=== PATIENT | female | born 1990 | race Asian ===

== ENCOUNTER 2018-12-21 10:38 | Emergency (ER) | payer BC ==
[~2018-12-21] VITALS: Ht 160 cm; Wt 65.8 kg
--- NOTE | 2018-12-21 10:50 | NUR ---
ED Nurse Note: patient walked in to ER from home c/o N/V/D and abdominal pain 05/03 since 0100 this morning. pt aao x4 and ambulatory. calm and cooperative. pt suspecting fully uncooked port that she ate for yesterday lunch might have caused it. skin clean and intact.
[2018-12-21 11:00] VITALS: BP 116/85
[2018-12-21] MEDS ORDERED: Morphine Sulfate 4mg/ml Inj (IV USE ONLY) IVP ONE ×3 (11:00→13:00)
[2018-12-21 11:20] LABS: HEMATOCRIT 40.1 % (37.0-47.0); HEMOGLOBIN 13.7 G/DL (12.0-16.0); MEAN CORPUSCULAR VOLUME 91 FL (80-99); PLATELET COUNT 250 K/UL (150-450); RED BLOOD COUNT 4.39 M/UL (4.20-5.40); RED CELL DISTRIBUTION WIDTH 11.6 % (11.6-14.8)
[2018-12-21 11:23] LABS: APPEARANCE,URINE CLEAR; BILIRUBIN, URINE NEGATIVE (NEGATIVE); COLOR,URINE PALE YELLOW; GLUCOSE, URINE (UA) NEGATIVE (NEGATIVE); KETONES,URINE NEGATIVE (NEGATIVE); LEUKOCYTE ESTERASE ,URINE NEGATIVE (NEGATIVE); NITRITE,URINE NEGATIVE (NEGATIVE); PH,URINE 7 (4.5-8.0); PROTEIN,URINE NEGATIVE (NEGATIVE); UROBILINOGEN,URINE NORMAL MG/DL (0.0-1.0)
[2018-12-21] MEDS ORDERED: NKM (11:28)
[2018-12-21 11:33] LABS: ANION GAP 12 mmol/L (5-15); BLOOD UREA NITROGEN 11 mg/dL (7-18); CALCIUM 8.8 MG/DL (8.5-10.1); CARBON DIOXIDE 26 MMOL/L (21-32); CHLORIDE 102 MMOL/L (98-107); CREATININE 0.6 MG/DL (0.55-1.30); POTASSIUM 3.3 MMOL/L (3.5-5.1); SODIUM 139 MMOL/L (136-145)
[2018-12-21 11:37] LABS: ALANINE AMINOTRANSFERASE 17 U/L (12-78); ALBUMIN 4.3 G/DL (3.4-5.0); ALBUMIN/GLOBULIN RATIO 1.2 (1.0-2.7); ALKALINE PHOSPHATASE 38 U/L (46-116); ASPARTATE AMINO TRANSFERASE 14 U/L (15-37); BILIRUBIN,TOTAL 0.6 MG/DL (0.2-1.0)
[2018-12-21] MEDS ORDERED: Isovue-300 100ml vial INJ PRN (11:45)
--- NOTE | 2018-12-21 12:19 | Emergency Room Report ---
History of Present Illness General Chief Complaint: Abdominal Pain Source: Patient Present Illness HPI Patient presents emergency department today complaining of severe epigastric pain. Patient states that she thinks she has some bad pork yesterday. The developed acute onset epigastric pain associate nausea vomiting and diarrhea since 1 AM. She has had persistent vomiting and diarrhea and is unable to tolerate any oral fluids. He denies any chest pain or shortness of breath. She is never had episodes of this before. She denies coffee-ground emesis or rectal bleeding. No other complaints are noted. Symptoms noted to be severe. No other modifying factors. No other associated signs and symptoms. No other complaints were noted. Allergies: Coded Allergies: No Known Allergies (Unverified , 12/21/18) Patient History Past Medical History: none Past Surgical History: appy Pertinent Family History: none Social History: Denies: smoking, alcohol use, drug use Last Menstrual Period: NOW Now: No Reviewed Nursing Documentation: PMH: Agreed; PSxH: Agreed Nursing Documentation-PMH Past Medical History: No Stated History Review of Systems All Other Systems: negative except mentioned in HPI Physical Exam Vital Signs Date Time Temp Pulse Resp B/P (MAP) Pulse Ox O2 Delivery O2 Flow Rate FiO2 12/21/18 10:45 98.6 90 20 114/81 (92) 98 Room Air Sp02 EP Interpretation: reviewed, normal General Appearance: alert, moderate distress Head: atraumatic Eyes: bilateral eye normal inspection ENT: normal ENT inspection, hearing grossly normal, normal voice Neck: normal inspection, full range of motion, supple, no bony tend Respiratory: normal inspection, lungs clear, normal breath sounds, no respiratory distress, no retraction, no wheezing Cardiovascular #1: regular rate, rhythm, no edema Gastrointestinal: normal inspection, normal bowel sounds, soft, no guarding, no hernia, tenderness - Epigastric Genitourinary: no CVA tenderness Musculoskeletal: normal inspection, back normal, normal range of motion Neurologic: normal inspection, alert, responsive, speech normal Psychiatric: normal inspection, judgement/insight normal, anxious Skin: normal inspection, normal color, no rash Medical Decision Making Diagnostic Impression: Primary Impression: Abdominal pain Additional Impressions: Dehydration Leukocytosis Vomiting ER Course Patient presents to the emergency department today complaining of abdominal pain. Differential considerations include acute pancreatitis, cholecystitis, gastritis, hepatitis, appendicitis just to name a few. Given the severity of the patient's presentation I felt this is a highly complex patient. This patient required extensive workup. Patient's laboratory work-up was positive for elevated white blood cell count. Because of the CT scan of the abdomen pelvis was performed. It was noted to be negative. Patient was given multiple boluses of fluids and pain medications felt better. Patient was offered admission but declined. Because of patient's elevated white blood cell, I advised her to have a CBC performed in 24 to 48 hours for recheck patient was given copies of all her labs and x-rays and CAT scans. Patient is advised to follow up with primary doctor in 2-3 days and return the emergency room for any worsening symptoms and as needed. Labs Test 12/21/18 11:02 12/21/18 11:14 12/21/18 13:25 White Blood Count 21.0 K/UL (4.8-10.8) 19.9 K/UL (4.8-10.8) Red Blood Count 4.39 M/UL (4.20-5.40) 4.25 M/UL (4.20-5.40) Hemoglobin 13.7 G/DL (12.0-16.0) 13.2 G/DL (12.0-16.0) Hematocrit 40.1 % (37.0-47.0) 39.4 % (37.0-47.0) Mean Corpuscular Volume 91 FL (80-99) 93 FL (80-99) Mean Corpuscular Hemoglobin 31.2 PG (27.0-31.0) 31.0 PG (27.0-31.0) Mean Corpuscular Hemoglobin Concent 34.1 G/DL (32.0-36.0) 33.4 G/DL (32.0-36.0) Red Cell Distribution Width 11.6 % (11.6-14.8) 11.9 % (11.6-14.8) Platelet Count 250 K/UL (150-450) 212 K/UL (150-450) Mean Platelet Volume 6.6 FL (6.5-10.1) 6.6 FL (6.5-10.1) Neutrophils (%) (Auto) % (45.0-75.0) % (45.0-75.0) Lymphocytes (%) (Auto) % (20.0-45.0) % (20.0-45.0) Monocytes (%) (Auto) % (1.0-10.0) % (1.0-10.0) Eosinophils (%) (Auto) % (0.0-3.0) % (0.0-3.0) Basophils (%) (Auto) % (0.0-2.0) % (0.0-2.0) Differential Total Cells Counted 100 Neutrophils % (Manual) 75 % (45-75) Lymphocytes % (Manual) 2 % (20-45) Monocytes % (Manual) 4 % (1-10) Eosinophils % (Manual) 1 % (0-3) Basophils % (Manual) 0 % (0-2) Band Neutrophils 18 % (0-8) Platelet Estimate Adequate Platelet Morphology Normal Red Blood Cell Morphology Normal Sodium Level 139 MMOL/L (136-145) Potassium Level 3.3 MMOL/L (3.5-5.1) Chloride Level 102 MMOL/L (98-107) Carbon Dioxide Level 26 MMOL/L (21-32) Anion Gap 12 mmol/L (5-15) Blood Urea Nitrogen 11 mg/dL (7-18) Creatinine 0.6 MG/DL (0.55-1.30) Estimat Glomerular Filtration Rate > 60 mL/min (>60) Glucose Level 89 MG/DL (74-106) Calcium Level 8.8 MG/DL (8.5-10.1) Total Bilirubin 0.6 MG/DL (0.2-1.0) Aspartate Amino Transf (AST/SGOT) 14 U/L (15-37) Alanine Aminotransferase (ALT/SGPT) 17 U/L (12-78) Alkaline Phosphatase 38 U/L (46-116) Total Protein 8.0 G/DL (6.4-8.2) Albumin 4.3 G/DL (3.4-5.0) Globulin 3.7 g/dL Albumin/Globulin Ratio 1.2 (1.0-2.7) Lipase 99 U/L (73-393) Urine Color Pale yellow Urine Appearance Clear Urine pH 7 (4.5-8.0) Urine Specific [place] 1.010 (1.005-1.035) Urine Protein Negative (NEGATIVE) Urine Glucose (UA) Negative (NEGATIVE) Urine Ketones Negative (NEGATIVE) Urine Blood 4+ (NEGATIVE) Urine Nitrite Negative (NEGATIVE) Urine Bilirubin Negative (NEGATIVE) Urine Urobilinogen Normal MG/DL (0.0-1.0) Urine Leukocyte Esterase Negative (NEGATIVE) Urine RBC 5-10 /HPF (0 - 2) Urine WBC 0 /HPF (0 - 2) Urine Squamous Epithelial Cells None /LPF (NONE/OCC) Urine Bacteria None /HPF (NONE) Urine HCG, Qualitative Negative (NEGATIVE) Chest X-Ray Diagnostic Results Chest X-Ray Diagnostic Results : Chest X-Ray Ordered: Yes # of Views/Limited/Complete: 1 View Indication: Chest Pain EP Interpretation: No Interpretation: no consolidation, no effusion, no pneumothorax Impression: No acute disease CT/MRI/US Diagnostic Results CT/MRI/US Diagnostic Results : Imaging Test Ordered: CT abdomen pelvis: Right-sided pulmonary nodule changes consistent enteriti Last Vital Signs Date Time Temp Pulse Resp B/P (MAP) Pulse Ox O2 Delivery O2 Flow Rate FiO2 12/21/18 11:36 98.6 12/21/18 11:00 87 20 116/85 100 Room Air Status: improved Disposition: HOME, SELF-CARE Condition: Stable Scripts Hydrocodone Bit/Acetaminophen 5-325* (NORCO 5-325*) 1 Each Tablet 1 TAB ORAL Q6H PRN for For Pain, #10 TAB 0 Refills Prov: Rafael Levi MD 12/21/18 Ondansetron Odt* (ZOFRAN ODT*) 4 Mg Tab.rapdis 4 MG BC EVERY 6 HOURS PRN for Nausea & Vomiting, #10 TAB 0 Refills Prov: Rafael Levi MD 12/21/18 Referrals: NOT CHOSEN [facility]/,REFERRING (PCP) Rafael Levi MD December 21, 2018 12:19
--- NOTE | 2018-12-21 12:30 | Diagnostic Imaging Report ---
Indication: Shortness of breath Technique: One view of the chest Comparison: none Findings: Lungs and pleural spaces are clear. Heart size is normal Impression: No acute process
--- NOTE | 2018-12-21 12:30 | Diagnostic Imaging Report ---
Clinical Indication: Abdominal pain, nausea, vomiting, diarrhea Technique: No oral contrast utilized, per emergency room physician request IV administration nonionic contrast. Venous phase spiral acquisition obtained through the abdomen and pelvis. Multiplanar reconstructions were generated. Total dose length product 705.72 mGycm. CTDIvol(s) 14.12 mGy. Dose reduction achieved using automated exposure control Comparison: Findings: Lack of enteric contrast limits assessment of the GI tract. Mild amount of liquid stool is seen in the proximal colon. What may be a short but otherwise normal appendix is equivocally demonstrated. No findings to suggest acute appendicitis. There are prominent mesenteric root and right lower quadrant lymph nodes noted. Small bowel loops in the pelvis and right upper quadrant are slightly prominent, fluid-filled, equivocally slightly thick walled. No evidence of diverticulosis or diverticulitis. The distal esophagus, stomach, duodenum are unremarkable. The liver, gallbladder, bile ducts, pancreas, spleen, adrenals, kidneys are all unremarkable. No pelvic mass or adenopathy. Uterus and adnexal structures are unremarkable. There appears to be a tampon in the vagina. The included lung bases demonstrate a tiny nodular opacity in the periphery of the right lower lobe, as well as some atelectasis in the inferior right lung. Nodular opacity measures approximately 3 mm in diameter. The bones are unremarkable. Impression: Limited assessment of the GI tract, due to lack of enteric contrast administration Minimally prominent fluid-filled pelvic and right upper quadrant small bowel loops with mild wall thickening; mild ascending colon liquid stool. Findings could indicate mild enteritis changes Prominent mesenteric root lymph nodes, possibly reactive No acute process otherwise 3 mm right basilar pulmonary nodule. No further follow-up necessary if there are no risk factors for lung carcinoma The CT scanner at [facility] is accredited by the [employer] and the scans are performed using protocols designed to limit radiation exposure to as low as reasonably achievable to attain images of sufficient resolution adequate for diagnostic evaluation.
[2018-12-21 14:04] LABS: HEMATOCRIT 39.4 % (37.0-47.0); HEMOGLOBIN 13.2 G/DL (12.0-16.0); MEAN CORPUSCULAR VOLUME 93 FL (80-99); PLATELET COUNT 212 K/UL (150-450); RED BLOOD COUNT 4.25 M/UL (4.20-5.40); RED CELL DISTRIBUTION WIDTH 11.9 % (11.6-14.8); WHITE BLOOD COUNT 19.9 K/UL (4.8-10.8)
[2018-12-21] MEDS ORDERED: ONDANSETRON ODT4 MG BC (14:22)
[2018-12-21] MEDS ORDERED: NORCO 5-325 TA1 EACH ORAL (14:22)
[2018-12-21 14:32] VITALS: BP 108/71
--- NOTE | 2018-12-21 14:33 | NUR ---
ER DISCHARGE NOTE: Patient is cleared to be discharged per ERMD, pt is aox4, on room air, with stable vital signs. pt was given dc and prescription instructions, pt was able to verbalize understanding, pt id band and iv site removed without complications. pt is able to ambulate with steady gait. pt took all belongings.
== END 2018-12-21 14:34 | disposition home or self-care (01) ==
LOC: EMR 11:00 → CANBEDREQ 14:21 → EMR 14:34
DX: R10.13 Epigastric pain (principal); E86.0 Dehydration; D72.829 Elevated white blood cell count, unspecified; R11.2 Nausea with vomiting, unspecified
CPT/HCPCS: 36415; 71045; 74177; 80053; 81003; 81025; 83690; 85007; 85025; 96361; 96374; 96375; 96376; 99284; J2270; J2405; Q9967

== ENCOUNTER 2019-07-09 11:35 | Emergency (ER) | payer BC ==
[~2019-07-09] VITALS: Ht 160 cm; Wt 68.0 kg
[~2019-07-09 11:35] MED LIST: NKM; NORCO 5-325 TA1 EACH ORAL; ONDANSETRON ODT4 MG BC
[2019-07-09 11:43] VITALS: BP 105/78
--- NOTE | 2019-07-09 11:52 | NUR ---
ED Nurse Note: Pt walked into ED w/ c/o R and L knee swelling. Edema non-pitting bilat knees. R knee was hit on car door while walking and L knee has been swollen for over 3 months. Pt has recently gotten xrays on bilat knees and aspiration and steroid injection. Pain on bilat knees 6/10 when walking or sleeping.
--- NOTE | 2019-07-09 12:12 | Emergency Room Report ---
History of Present Illness General Chief Complaint: Lower Extremity Injury Source: Patient Present Illness HPI Patient is a 28-year-old female presents after increased right-sided knee swelling. She reports having increased pain to the right knee. She had similar symptoms in the past on the opposite knee. She denies any fever. She had previous work-up on the other knee which showed no evidence of gout or other crystals. She reports having onset of symptoms after minor trauma. Reports having difficulty with extension of her knee. Denies any fever. Allergies: Coded Allergies: No Known Allergies (Unverified , 12/21/18) Patient History Past Medical History: see triage record Last Menstrual Period: now Now: No Reviewed Nursing Documentation: PMH: Agreed; PSxH: Agreed Nursing Documentation-PMH Past Medical History: No History, Except For Review of Systems All Other Systems: negative except mentioned in HPI Physical Exam Vital Signs Date Time Temp Pulse Resp B/P (MAP) Pulse Ox O2 Delivery O2 Flow Rate FiO2 07/09/19 11:43 98.6 90 20 105/78 (87) 97 Room Air General Appearance: well appearing, no apparent distress, alert, GCS 15 Head: normocephalic, atraumatic ENT: hearing grossly normal, normal voice Neck: full range of motion, supple Respiratory: lungs clear, normal breath sounds, no rhonchi, no respiratory distress, speaking full sentences Cardiovascular #1: normal inspection Gastrointestinal: normal inspection, non tender, soft Musculoskeletal: no calf tenderness, decreased range of mation - slight swelling to right knee, other Neurologic: alert, motor strength/tone normal, medical office rep III-XII nml as tested, oriented, oriented x3 Psychiatric: normal inspection, judgement/insight normal, memory normal, mood/ affect normal Skin: normal color, no rash Medical Decision Making Diagnostic Impression: Primary Impression: Monoarticular arthritis ER Course Patient presented for knee pain. Differential diagnosis include but not limited to septic joint, rheumatic arthritis among others. Patient does not appear to have any evidence of septic arthritis. Patient was advised to follow- up with orthopedics.Patient was notified that she should have this performed by an orthopedic physician as an outpatient. She states she saw her orthopedic physician who did not want to do arthrocentesis. Patient advised that she is to follow-up with orthopedics.. Patient will be discharged home. Patient advised to continue anti-inflammatory medications. Last Vital Signs Date Time Temp Pulse Resp B/P (MAP) Pulse Ox O2 Delivery O2 Flow Rate FiO2 07/09/19 11:43 98.6 90 20 105/78 (87) 97 Room Air Status: unchanged Disposition: HOME, SELF-CARE Condition: Stable Referrals: NOT CHOSEN [facility]/,REFERRING (PCP) Casey Cartwright MD Jul 09, 2019 12:12
--- NOTE | 2019-07-09 12:20 | NUR ---
ED Nurse Note: MD and CN aware that pt left without instructions or DC VS per prior note.
--- NOTE | 2019-07-09 12:20 | NUR ---
ER DISCHARGE NOTE: Patient is cleared to be discharged per ERMD, pt is aox4, on room air. spoke to pt about discharge instructions. Pt at 1220 came out of room crying and saying "they're not going to do anything." We explained to pt that she needs discharge papers, but she refused and walked right out the door. Pt left without d/c instruction or D/C VS and before getting wristband removed. pt is able to ambulate with steady gait. pt took all belongings.
== END 2019-07-09 12:20 | disposition home or self-care (01) ==
LOC: EMR 12:07
DX: M17.11 Unilateral primary osteoarthritis, right knee (principal)
CPT/HCPCS: 99281; 99282